=== PATIENT | female | born 1975 | race Caucasian/White ===

== ENCOUNTER 2016-12-10 09:53 | Emergency (ER) | payer BC, OTHER ==
[2016-12-10] MEDS ORDERED: KETOROLAC 30 MG/ML 1 ML VIAL IVP STA (10:24)
[2016-12-10] MEDS ORDERED: SODIUM CHLORIDE 0.9% 500 ML IV STA (10:24)
[2016-12-10] MEDS ORDERED: ONDANSETRON 4 MG/2 ML VIAL IVP STA (10:24)
--- NOTE | 2016-12-10 10:31 | ED ---
Headache HPI - General Chief Complaint: Headache Stated Complaint: headache,pain all over Time Seen by Provider: 12/10/16 10:13 Mode of arrival: wheelchair Limitations: no limitations - History of Present Illness Initial Comments: 41-year-old female presents with chief complaint of headache. She states her headache is been going on for 3 days feels tight different from her routine migraines she feels sensitive to light tenderness even her hair hurts. She also has pain down her neck with no stiffness. She also has some anterior tenderness to her chest she has no fever or chill. No cough. She has nausea but no vomiting no diarrhea. No known exposures she has not had any insect bites that she is aware of. She has no sinus congestion no drainage. No one else is been sick around her. Although there has been no fever she has felt warm hot and cold like an infection. - Related Data Previous Rx's Medication Instructions Recorded HYDROcodone/APAP 10-325MG [[place] 1 tab PO Q6H PRN #10 tab 12/10/16 10-325] Ibuprofen [Motrin] 600 mg PO Q8HR #15 tab 12/10/16 Allergies Allergy/AdvReac Type Severity Reaction Status Date / Time No Known Allergies Allergy Verified 12/10/16 11:16 Review of Systems ROS Statement: Those systems with pertinent positive or pertinent negative responses have been documented in the HPI. ROS Other: All systems not noted in ROS Statement are negative. Constitutional: Reports: chills. Denies: fever Eyes: Denies: eye pain, eye discharge ENT: Denies: ear pain, throat pain, dental pain Respiratory: Denies: cough Cardiovascular: Reports: chest pain. Denies: palpitations, dyspnea on exertion Endocrine: Denies: fatigue, heat or cold intolerance Gastrointestinal: Reports: nausea. Denies: abdominal pain, vomiting, diarrhea Genitourinary: Denies: urgency, dysuria, frequency Musculoskeletal: Denies: back pain Skin: Denies: rash Neurological: Reports: headache. Denies: numbness, paresthesias, confusion Psychiatric: Denies: anxiety, depression Hematological/Lymphatic: Denies: easy bleeding, easy bruising, swollen glands Past Medical History Past Medical History: No Reported History History of Any Multi-Drug Resistant Organisms: None Reported Past Surgical History: Appendectomy, Tubal Ligation Past Psychological History: Anxiety, Depression Smoking Status: Current every day smoker Past Alcohol Use History: None Reported Past Drug Use History: Marijuana General Exam Limitations: no limitations General appearance: alert, in no apparent distress Head exam: Present: atraumatic Eye exam: Present: normal appearance, PERRL, EOMI. Absent: scleral icterus ENT exam: Present: normal exam, normal oropharynx Neck exam: Present: normal inspection. Absent: meningismus Respiratory exam: Present: normal lung sounds bilaterally, other Cardiovascular Exam: Present: regular rate, normal rhythm, normal heart sounds GI/Abdominal exam: Present: soft, distended, normal bowel sounds Extremities exam: Present: normal inspection Neurological exam: Present: alert, CN II-XII intact Psychiatric exam: Present: normal affect, normal mood Skin exam: Present: warm, dry Course Vital Signs 12/10/16 12/10/16 09:54 12:35 Temperature 98.1 F 97.4 F L Pulse Rate 82 64 Respiratory 18 18 Rate Blood Pressure 131/80 121/65 O2 Sat by Pulse 98 96 Oximetry Medical Decision Making - Medical Decision Making Discussed with patient she is much more comfortable have didn't have discussed with the on-call that point she did not feel there is any reason to admit patient finally responded to some Dilaudid and on oral hydrocodone as this ran out. Now that she is more comfortable she tells me that this headache is more on the left side similar location as her migraine but much worse in generally doesn't go into her face she has no double vision she does have photophobia so this may be actually a vascular headache that is much worse than her usual her CAT scan was satisfactory lab work is satisfactory she feels comfortable going home she'll re-turn if worsening and will follow-up with PMD and neurologist to consider MRI if not improving or if worsening. - Lab Data Result diagrams: 12/10/16 10:40 12/10/16 10:40 Lab Results 12/10/16 12/10/16 Range/Units 10:40 10:40 WBC 8.4 (3.8-10.6) k/uL RBC 4.85 (3.80-5.40) m/uL Hgb 14.4 (11.4-16.0) gm/dL Hct 41.0 (34.0-46.0) % MCV 84.5 (80.0-100.0) fL MCH 29.6 (25.0-35.0) pg MCHC 35.1 (31.0-37.0) g/dL RDW 12.3 (11.5-15.5) % Plt Count 373 (150-450) k/uL Neutrophils % 63 % Lymphocytes % 26 % Monocytes % 6 % Eosinophils % 2 % Basophils % 1 % Neutrophils # 5.3 (1.3-7.7) k/uL Lymphocytes # 2.2 (1.0-4.8) k/uL Monocytes # 0.5 (0-1.0) k/uL Eosinophils # 0.2 (0-0.7) k/uL Basophils # 0.1 (0-0.2) k/uL ESR 11 (0-20) mm/hr Sodium 141 (137-145) mmol/L Potassium 4.3 (3.5-5.1) mmol/L Chloride 106 (98-107) mmol/L Carbon Dioxide 24 (22-30) mmol/L Anion Gap 11 mmol/L BUN 11 (7-17) mg/dL Creatinine 0.64 (0.52-1.04) mg/dL Est GFR (MDRD) Af Amer >60 (>60 ml/min/1.73 sqM) Est GFR (MDRD) Non-Af >60 (>60 ml/min/1.73 sqM) Glucose 92 (74-99) mg/dL Calcium 9.3 (8.4-10.2) mg/dL Total Bilirubin 1.6 H (0.2-1.3) mg/dL AST 15 (14-36) U/L ALT 19 (9-52) U/L Alkaline Phosphatase 68 (38-126) U/L Total Protein 7.2 (6.3-8.2) g/dL Albumin 4.2 (3.5-5.0) g/dL Disposition Clinical Impression: Migraine Disposition: HOME SELF-CARE Condition: Fair Instructions: Acute Headache (ED) Prescriptions: HYDROcodone/APAP 10-325MG [[place] 10-325] 1 tab PO Q6H PRN #10 tab PRN Reason: Headache Ibuprofen [Motrin] 600 mg PO Q8HR #15 tab Referrals: None,Stated [Primary Care Provider] - 1-2 days Madhav Dao MD [REFERRING] - 1-2 days James Mittal MD [STAFF PHYSICIAN] - 1-2 days Time of Disposition: 14:32
[2016-12-10 10:54] LABS: Basophils # (A) 0.1 k/uL (0-0.2); Basophils % (A) 1 %; CH 29.2; CHCM 34.7; Eosinophils # (A) 0.2 k/uL (0-0.7); Eosinophils % (A) 2 %; HDW 2.27; HGB 14.4 gm/dL (11.4-16.0); Luc # (Auto) 0.15; Luc % (Auto) 2; Lymphocytes # (A) 2.2 k/uL (1.0-4.8); Lymphocytes % (A) 26 %; MCH 29.6 pg (25.0-35.0); MCHC 35.1 g/dL (31.0-37.0); MCV 84.5 fL (80.0-100.0); Mean Platelet Volume 7.5; Monocytes # (A) 0.5 k/uL (0-1.0); Monocytes % (A) 6 %; Neutrophils # (A) 5.3 k/uL (1.3-7.7); Neutrophils % (A) 63 %; RBC 4.85 m/uL (3.80-5.40); RDW 12.3 % (11.5-15.5); WBC 8.4 k/uL (3.8-10.6)
[2016-12-10 11:01] LABS: ALT 19 U/L (9-52); AST 15 U/L (14-36); Alkaline Phosphatase 68 U/L (38-126); Anion Gap 11 mmol/L; Blood Urea Nitrogen 11 mg/dL (7-17); Calcium 9.3 mg/dL (8.4-10.2); Carbon Dioxide 24 mmol/L (22-30); Chloride 106 mmol/L (98-107); Glucose 92 mg/dL (74-99); Non-African American GFR(MDRD) >60 (>60 ml/min/1.73 sqM); Potassium 4.3 mmol/L (3.5-5.1); Sodium 141 mmol/L (137-145); Total Bilirubin 1.6 mg/dL (0.2-1.3); Total Protein 7.2 g/dL (6.3-8.2)
--- NOTE | 2016-12-10 11:13 | CT ---
EXAMINATION TYPE: CT brain wo con DATE OF EXAM: 12/10/2016 COMPARISON: NONE HISTORY: Headache, pain all over. Migraine headache history with new severe headache today. CT DLP: 963.6 mGycm. Automated Exposure Control for Dose Reduction was Utilized. TECHNIQUE: CT scan of the head is performed without contrast. FINDINGS: There is no acute intracranial hemorrhage, mass effect, or midline shift identified. The ventricles and sulci are within normal limits in size. Camacho-white matter differentiation is preserve d. The globes are intact and the visualized sinuses are clear. IMPRESSION: No acute intracranial hemorrhage, mass effect, or midline shift is seen. Unremarkable st udy.
[2016-12-10] MEDS ORDERED: HYDROmorphone 1 MG/ML 1 ML SYRINGE IVP STA (11:16)
[2016-12-10 11:38] LABS: Erythrocyte Sedimentation Rate 11 mm/hr (0-20)
[2016-12-10] MEDS ORDERED: HYDROcodone/APAP 10-325MG 1 EACH TAB PO STA (12:39)
[2016-12-10 14:54] VITALS: BP 105/61; PULSE 85; RESP 16; TEMP 97
== END 2016-12-10 14:50 | disposition home or self-care (01) ==
LOC: EC 09:53
DX: G43.909 Migraine, unspecified, not intractable, without status migrainosus (principal); R11.0 Nausea; F17.200 Nicotine dependence, unspecified, uncomplicated
CPT/HCPCS: 36415; 80053; 85652; 85025; 70450; 99284; 96374; 96375 ×2; J2405; J1885; J1170